=== PATIENT | male | born 1990 | race Caucasian/White ===

== ENCOUNTER 2017-03-20 21:19 | Emergency (ER) | payer OTHER ==
[~2017-03-20] VITALS: Ht 177.8 cm; Wt 72.7 kg
[2017-03-20 21:23] VITALS: Ht 177.8 cm; Wt 72.7 kg
[2017-03-20] MEDS ORDERED: ACETAMINOPHEN 500 MG TAB PO STA (21:24)
[2017-03-20] MEDS ORDERED: RANI150T9 PO (21:33)
[2017-03-20] MEDS ORDERED: ACET325T33 PO (21:33)
--- NOTE | 2017-03-20 22:07 | ERD ---
ER Documentation Chief Complaint Date/Time DATE: 03/20/17 TIME: 22:03 Chief Complaint ROBBI [id number], in custody,c/o CP and rt shoulder pain HPI This 27-year-old male presents emergency room after being arrested by police. He stated that after being arrested he suddenly had central chest pain that did not radiate. He also had right shoulder pain. He denies any shortness of breath fever and chills. He denies any other pain or injuries. He does not have any medical problems. ROS All systems reviewed and are negative except as per history of present illness. Medications Home Meds Active Scripts Acetaminophen* (Tylenol*) 325 Mg Tablet, 1 TAB PO Q8 Y for PAIN AND OR ELEVATED TEMP, #12 TAB Prov:YEFRI CRUZ DO 03/20/17 Ranitidine Hcl* (Zantac*) 150 Mg Tablet, 150 MG PO BID Y for EPIGASTRIC PAIN, # 30 TAB Prov:YEFRI CRUZ DO 03/20/17 Allergies Allergies: Coded Allergies: No Known Allergy (Unverified , 03/20/17) PMhx/Soc Smoking Status: Unknown if ever smoked Physical Exam Vitals Vital Signs Date Time Temp Pulse Resp B/P Pulse Ox O2 Delivery O2 Flow Rate FiO2 03/20/17 21:23 98.7 89 18 127/74 98 Physical Exam Const: [] Well-appearing muscular adult male. Head: Atraumatic Eyes: Normal Conjunctiva ENT: Normal External Ears, Nose and Mouth. Neck: Full range of motion..~No JVD Resp: Clear to auscultation bilaterally Cardio: Regular rate and rhythm, no murmurs Abd: Soft, non tender, non distended. Normal bowel sounds Skin: No petechiae or rashes Back: No midline or flank tenderness Ext: No cyanosis, or edema, mild tenderness to palpation along deltoid muscle , patient able to move shoulder without any apparent strain. Distal pulses intact all 4 extremities appear Neur: Awake and alert and oriented 3, no focal deficits Psych: Normal Mood and Affect, cooperative Results 24 hrs Current Medications Medications (Trade) Dose Ordered Sig/Fol Route PRN Reason Start Time Stop Time Status Last Admin Dose Admin Acetaminophen (Tylenol Tab) 500 mg ONCE STAT PO 03/20/17 21:24 03/20/17 21:25 DC 03/20/17 21:46 Procedures/MDM Isolated chest pain and right shoulder pain following arrest. I doubt this patient has acute coronary syndrome as he is aged is not allowed was chance for atherosclerosis to build up. He also has a nonischemic EKG and normal chest x- ray. Is unremarkable shoulder x-ray as well. He is moving the arm very well the emergency room I do not think he needs a sling currently. He was given Tylenol for pain. I am going to discharge him with Zantac as well as Tylenol and instructions to follow-up with primary care doctor. I provided him a list of providers at the [facility] clinics in the area. Medically cleared him for discharge to police custody and that I do not see any acute emergency that would preclude continuation of please business with this patient. Chest x-ray interpretation: No acute process, I see no widened mediastinum, pneumothorax, no pulmonary edema, no fractures. Normal chest x-ray Right shoulder x-ray interpretation: I see no acute fracture dislocation, no soft tissue abnormalities. Departure Diagnosis: Primary Impression: Shoulder strain Additional Impression: Chest pain Condition: Stable Patient Instructions: Chest Pain, Uncertain Cause, Shoulder Sprain Additional Instructions: Call your primary care doctor TOMORROW for an appointment during the next 2-3 days. Ask for a referral for an ECHODARDIOGRAM to assure normal cardiac function. See the doctor sooner or return here if your condition worsens before your appointment time. YEFRI CRUZ DO March 20, 2017 22:07
--- NOTE | 2017-03-20 23:01 | RADRPT ---
PROCEDURE: CHEST - 1 VIEW CLINICAL INDICATION: 27-year-old male with chest pain. TECHNIQUE: A single frontal AP semi-erect portable view of the chest was performed. The images we re reviewed on a PACS workstation. COMPARISON: None. FINDINGS: The cardiomediastinal silhouette has a normal appearance. There is no evidence for an infiltrate. T he pulmonary vascularity is within normal limits. There is no evidence for pneumothorax or pneumomed iastinum. The osseous structures are intact. IMPRESSION: No evidence for active cardiopulmonary disease. .Goyo Platt MD, Date Time Electronically viewed and signed by .Goyo Platt MD, on 03/20/2017 23:00 .M/
--- NOTE | 2017-03-20 23:02 | RADRPT ---
PROCEDURE: RIGHT SHOULDER CLINICAL INDICATION: 27-year-old male with right shoulder pain. TECHNIQUE: Two-views of the right shoulder were obtained. The images reviewed on a PACS workstatio n. COMPARISON: Chest x-ray obtained concurrently. FINDINGS: No evidence of an acute fracture or dislocation is seen. There is a Hill-Sachs deformity. The gleno humeral and acromioclavicular joint spaces appear preserved. Limited views of the clavicle and thor ax are within normal limits. IMPRESSION: 1. No acute fracture or dislocation. 2. Hill-Sachs deformity. .Goyo Platt MD, Date Time Electronically viewed and signed by .Goyo Platt MD, on 03/20/2017 23:02 .Melvina/
== END 2017-03-20 22:46 | disposition home or self-care (01) ==
LOC: E/R 21:19
DX: S46.911A Strain of unspecified muscle, fascia and tendon at shoulder and upper arm level, right arm, initial encounter (principal); R40.2142 Coma scale, eyes open, spontaneous, at arrival to emergency department; R40.2252 Coma scale, best verbal response, oriented, at arrival to emergency department; R40.2362 Coma scale, best motor response, obeys commands, at arrival to emergency department; X58.XXXA Exposure to other specified factors, initial encounter; Y92.9 Unspecified place or not applicable
CPT/HCPCS: 71010; 93005